=== PATIENT | male | born 1965 | race Caucasian/White ===

== ENCOUNTER → 2016-08-07 | Outpatient (CLI) | payer OTHER | LOC: HEART 5 07-19 07:30 | DX: R07.9 Chest pain, unspecified (principal); F17.210 Nicotine dependence, cigarettes, uncomplicated; I10 Essential (primary) hypertension | CPT/HCPCS: 93306 ==

== ENCOUNTER → 2016-09-12 | Outpatient (CLI) | payer OTHER | LOC: EXRD 14:06 | DX: J20.9 Acute bronchitis, unspecified (principal) | CPT/HCPCS: 71020 ==